=== PATIENT | female | born 1985 | race Caucasian/White ===

== ENCOUNTER 2019-08-05 05:57 | Emergency (ER) | payer MEDICAID, SELFPAY ==
[2019-08-05] MEDS ORDERED: Morphine 2 MG/ML Syringe IVPUSH ONE (06:26)
[2019-08-05] MEDS ORDERED: Sodium Chloride 0.9% 10 ML Syringe FLUSH PRN (06:32)
[2019-08-05] MEDS ORDERED: Iopamidol 755 Mg/ML 100 ML Bottle IV ONE (06:41)
[2019-08-05] MEDS ORDERED: cefTRIAXone 2 GM Vial IVPUSH ONE (08:15)
--- NOTE | 2019-08-05 08:15 | EDM.PDOC ---
ED HPI GENERAL MEDICAL PROBLEM - General Chief Complaint: General Stated Complaint: INFECTION ON STOMACH Time Seen by Provider: 08/05/19 06:00 Source of Information: Reports: Patient History Limitations: Reports: No Limitations - History of Present Illness INITIAL COMMENTS - FREE TEXT/NARRATIVE: Patient presented to the Ed because of increasing redness,pain and swelling of the left side of her abdomen. It started as a bump and now it's hard and tender. She denies having any fever or chills. - Related Data Allergies Allergy/AdvReac Type Severity Reaction Status Date / Time No Known Allergies Allergy Verified 08/05/19 07:02 Home Meds: Home Meds Cephalexin [Keflex] 500 mg PO QID #40 capsule 08/05/19 [Rx] Ibuprofen 800 mg PO TID PRN #30 tablet 08/05/19 [Rx] Past Medical History Endocrine/Metabolic History: Reports: Obesity/BMI 30+ - Past Surgical History HEENT Surgical History: Reports: Tonsillectomy Social & Family History - Tobacco Use Smoking Status *Q: Current Every Day Smoker Years of Tobacco use: 13 Packs/Tins Daily: 0.5 ED ROS GENERAL - Review of Systems Review Of Systems: See Below Constitutional: Reports: No Symptoms HEENT: Reports: No Symptoms Respiratory: Reports: No Symptoms Cardiovascular: Reports: No Symptoms Endocrine: Reports: No Symptoms GI/Abdominal: Reports: Abdominal Pain. Denies: Nausea, Vomiting : Reports: No Symptoms Musculoskeletal: Reports: No Symptoms Skin: Reports: No Symptoms Neurological: Reports: No Symptoms Psychiatric: Reports: No Symptoms ED EXAM, GENERAL - Physical Exam Exam: See Below Exam Limited By: No Limitations General Appearance: Alert, No Apparent Distress Eye Exam: Bilateral Eye: PERRL Ears: Normal External Exam, Normal Canal, Hearing Grossly Normal Nose: Normal Inspection, Normal Mucosa, No Blood Throat/Mouth: Normal Inspection, Normal Lips Head: Atraumatic, Normocephalic Neck: Normal Inspection, Supple, Non-Tender Respiratory/Chest: No Respiratory Distress, Lungs Clear, Normal Breath Sounds Cardiovascular: Normal Peripheral Pulses, Regular Rate, Rhythm, No Edema, No Murmur, No Rub GI/Abdominal: Normal Bowel Sounds, Soft, No Distention, Other (tenderness and erythema left abdominal wall) Back Exam: Normal Inspection, Full Range of Motion Extremities: Normal Inspection, Normal Range of Motion Course - Vital Signs Text/Narrative:: Labs and CT abd/pelvis was dis cussed with the patient and verbalized full understanding CT abd/pelvis-no abscess=see result Rocephin 2 gm IV x1 toradol 30 mg IV x1 Last Recorded V/S: Last Vital Signs Temp 37.5 C 08/05/19 08:40 Pulse 123 H 08/05/19 08:40 Resp 20 08/05/19 08:40 BP 139/99 H 08/05/19 08:40 Pulse Ox 99 08/05/19 08:40 - Orders/Labs/Meds Orders: Active Orders 24 hr Category Date Time Status Abdomen Pelvis w Cont [CT] Stat Exams 08/05/19 06:27 Taken Labs: Laboratory Tests 08/05/19 08/05/19 Range/Units 06:35 06:35 WBC 27.5 H (4.5-12.0) X10-3/uL RBC 4.45 (3.23-5.20) x10(6)uL Hgb 13.1 (11.5-15.5) g/dL Hct 39.4 (30.0-51.3) % MCV 88.5 (80-96) fL MCH 29.5 (27.7-33.6) pg MCHC 33.3 (32.2-35.4) g/dL RDW 13.8 (11.5-15.5) % Plt Count 322 (125-369) X10(3)uL MPV 9.3 (7.4-10.4) fL Add Manual Diff Yes Neutrophils % (Manual) 81 (46-82) % Band Neutrophils % 4 (0-6) % Lymphocytes % (Manual) 13 (13-37) % Monocytes % (Manual) 2 L (4-12) % Sodium 138 (135-145) mmol/L Potassium 4.0 (3.5-5.3) mmol/L Chloride 100 (100-110) mmol/L Carbon Dioxide 28 (21-32) mmol/L BUN 8 (7-18) mg/dL Creatinine 1.0 (0.55-1.02) mg/dL Est Cr Clr Drug Dosing TNP Estimated GFR (MDRD) > 60 (>60) BUN/Creatinine Ratio 8.0 L (9-20) Glucose 120 H (80-116) mg/dL Calcium 9.0 (8.6-10.2) mg/dL Meds: Medications Discontinued Medications Generic Name Dose Route Start Last Admin Trade Name Abimael PRN Reason Stop Dose Admin Ceftriaxone Sodium 2 gm 08/05/19 08:15 08/05/19 08:29 Rocephin IVPUSH 08/05/19 08:16 2 gm ONETIME ONE Administration Iopamidol 100 ml 08/05/19 06:41 08/05/19 07:09 [id number] (76%) IV 08/05/19 06:42 100 ml . DIRECTED ONE Administration Ketorolac Tromethamine 30 mg 08/05/19 08:17 08/05/19 08:29 Toradol IVPUSH 08/05/19 08:18 30 mg ONETIME ONE Administration Morphine Sulfate 4 mg 08/05/19 06:26 08/05/19 06:52 Morphine IVPUSH 08/05/19 06:27 4 mg ONETIME ONE Administration Sodium Chloride 10 ml 08/05/19 06:32 08/05/19 06:52 Saline Flush FLUSH 10 ml ASDIRECTED PRN Administration Keep Vein Open Departure - Departure Time of Disposition: 08:10 Disposition: Home, Self-Care 01 Condition: Good Clinical Impression: Cellulitis - Discharge Information Prescriptions: Cephalexin [Keflex] 500 mg PO QID #40 capsule Ibuprofen 800 mg PO TID PRN #30 tablet PRN Reason: Pain Instructions: Cellulitis, Adult, [id number] Referrals: Benja Damon MD [Primary Care Provider] - Forms: ED Department Discharge Additional Instructions: please read discharge instructions on cellulitis take keflex 500 mg 4 times daily for 10 days take ibuprofen 800 mg with tylenol 1000 mg every 8 hours as needed for pain follow up this Sepsis Event Note - Evaluation Sepsis Screening Result: No Definite Risk - Focused Exam Vital Signs: Vital Signs Temp Pulse Resp BP Pulse Ox 08/05/19 08:40 37.5 C 123 H 20 139/99 H 99 08/05/19 06:05 37.0 C 138 H 24 H 120/107 H 99 Date Exam was Performed: 08/05/19 Time Exam was Performed: 15:41 - My Orders Last 24 Hours: My Active Orders 08/05/19 06:27 Abdomen Pelvis w Cont [CT] Stat - Assessment/Plan Last 24 Hours: My Active Orders 08/05/19 06:27 Abdomen Pelvis w Cont [CT] Stat
[2019-08-05] MEDS ORDERED: Ketorolac 30 MG/ML SDV IVPUSH ONE (08:17)
== END 2019-08-05 08:45 | disposition home or self-care (01) ==
LOC: FB.ED 05:57
DX: L03.311 Cellulitis of abdominal wall (principal); E66.9 Obesity, unspecified; Z68.42 Body mass index [BMI] 45.0-49.9, adult; F17.210 Nicotine dependence, cigarettes, uncomplicated
CPT/HCPCS: 36415; 74177; 80048; 85025; 96374; 96375; 99284; J0696; J1885; J2270; Q9967

== ENCOUNTER 2019-08-07 15:41 | Inpatient (IN) | payer MEDICAID, OTHER ==
[2019-08-07] MEDS: Sodium Chloride 0.9% 10 ML Syringe FLUSH PRN ×2 (16:19→22:50)
[2019-08-07] MEDS ORDERED: Docusate Sodium 100 MG Cap PO PRN (16:58)
[2019-08-07] MEDS ORDERED: Ondansetron 4 MG/2 ML SDV IV PRN (16:58)
[2019-08-07] MEDS ORDERED: Ketorolac 30 MG/ML SDV IVPUSH ONE (17:09)
[2019-08-07] MEDS ORDERED: Acetaminophen 500 MG Tab PO ONE (17:10)
[2019-08-07] MEDS: Ketorolac 30 MG/ML SDV IVPUSH PRN (17:13)
[2019-08-07] MEDS: Acetaminophen 500 MG Tab PO PRN (17:13)
--- NOTE | 2019-08-07 17:33 | EDM.PDOC ---
ED HPI GENERAL MEDICAL PROBLEM - General Stated Complaint: STOMACH INFECTION Time Seen by Provider: 08/07/19 16:00 Source of Information: Reports: Patient History Limitations: Reports: No Limitations - History of Present Illness INITIAL COMMENTS - FREE TEXT/NARRATIVE: Patient presented to the ED because of worsening redness,pain,swelling on the left abdomen. She was seen in the ED 2 days ago and was given Rocephin 2 gm IV and was discharge to home with Keflex and Ibuprofen,however, she noticed the redness and swelling to be worse. there is no associated fever or chills. - Related Data Allergies Allergy/AdvReac Type Severity Reaction Status Date / Time No Known Allergies Allergy Verified 08/05/19 07:02 Home Meds: Home Meds Cephalexin [Keflex] 500 mg PO QID #40 capsule 08/05/19 [Rx] Ibuprofen 800 mg PO TID PRN #30 tablet 08/05/19 [Rx] Past Medical History Endocrine/Metabolic History: Reports: Obesity/BMI 30+ - Past Surgical History HEENT Surgical History: Reports: Tonsillectomy ED ROS GENERAL - Review of Systems Review Of Systems: See Below Constitutional: Reports: No Symptoms HEENT: Reports: No Symptoms Respiratory: Reports: No Symptoms Cardiovascular: Reports: No Symptoms Endocrine: Reports: No Symptoms GI/Abdominal: Reports: No Symptoms : Reports: No Symptoms Musculoskeletal: Reports: No Symptoms Skin: Reports: Erythema Neurological: Reports: No Symptoms Psychiatric: Reports: No Symptoms Hematologic/Lymphatic: Reports: No Symptoms ED EXAM, SKIN/RASH Exam: See Below Exam Limited By: No Limitations General Appearance: Alert, No Apparent Distress Ears: Normal External Exam, Normal Canal, Hearing Grossly Normal Nose: Normal Inspection, Normal Mucosa, No Blood Throat/Mouth: Normal Inspection, Normal Lips Head: Atraumatic, Normocephalic Neck: Normal Inspection, Supple, Non-Tender Respiratory/Chest: No Respiratory Distress, Lungs Clear, Normal Breath Sounds, No Accessory Muscle Use, Chest Non-Tender Cardiovascular: Normal Peripheral Pulses, Regular Rate, Rhythm, No Edema, No Gallop, No JVD, No Murmur, No Rub GI/Abdominal: Normal Bowel Sounds, Soft, Non-Tender, No Organomegaly, No Distention (Female) Exam: Normal External Exam, Normal Speculum Exam Back Exam: Normal Inspection, Full Range of Motion Extremities: Normal Inspection, Normal Range of Motion, No Pedal Edema, Normal Capillary Refill Skin: Warm, Dry, Erythema (LLQ) Course - Vital Signs Text/Narrative:: labs reviewed and discussed with patient and verbalized full understanding start on zosyn and vanco toradol 30 mg IV x1 tylenol 1000 mg po x1 case discussed with Dr Damon who agrreed with the above plan of care - Orders/Labs/Meds Orders: Active Orders 24 hr Category Date Time Status Patient Status [ADT] Routine ADT 08/07/19 16:58 Active Ambulate [RC] ASDIRECTED Care 08/07/19 16:58 Active Oxygen Therapy [RC] PRN Care 08/07/19 16:58 Active VTE/DVT Education [RC] Per Unit Routine Care 08/07/19 16:58 Active Vital Signs [RC] Q4H Care 08/07/19 16:58 Active Regular Diet [DIET] Diet 08/07/19 Dinner Ordered BASIC METABOLIC PANEL,BMP [CHEM] Routine Lab 08/07/19 16:58 Ordered CBC WITH AUTO DIFF [HEME] AM Lab 08/08/19 05:11 Ordered CULTURE BLOOD [BC] Urgent Lab 08/07/19 16:55 Received CULTURE BLOOD [BC] Urgent Lab 08/07/19 16:55 Received Acetaminophen [Tylenol Extra Strength] Med 08/07/19 17:03 Active 1,000 mg PO Q8H PRN Docusate Sodium [Colace] Med 08/07/19 16:58 Active 100 mg PO BID PRN Ketorolac [Toradol] Med 08/07/19 17:03 Active 30 mg IVPUSH Q8H PRN Ondansetron [Zofran] Med 08/07/19 16:58 Active 4 mg IV Q4H PRN Piperacillin/Tazobactam [Zosyn] 4.5 gm Med 08/07/19 18:00 Active Sodium Chloride 0.9% [Normal Saline] 100 ml IV Q6H Sodium Chloride 0.9% [Saline Flush] Med 08/07/19 15:44 Active 10 ml FLUSH ASDIRECTED PRN Vancomycin 1 gm Med 08/07/19 18:00 Ordered Sodium Chloride 0.9% [Normal Saline] 250 ml IV Q12H Blood Culture x2 Reflex Set [OM.PC] Urgent Oth 08/07/19 15:53 Ordered Saline Lock Insert [OM.PC] Routine Oth 08/07/19 15:44 Ordered Resuscitation Status Routine Resus Stat 08/07/19 16:58 Ordered Medication Orders Acetaminophen (Tylenol Extra Strength) 1,000 mg PO Q8H PRN PRN Reason: Pain Last Admin: 08/07/19 17:13 Dose: 1,000 mg Docusate Sodium (Colace) 100 mg PO BID PRN PRN Reason: Constipation Piperacillin Sod/Tazobactam (Sod 4.5 gm/ Sodium Chloride) 100 mls @ 200 mls/hr IV Q6H SALONI Vancomycin HCl 1 gm/ Sodium (Chloride) 250 mls @ 167 mls/hr IV Q12H SALONI Ketorolac Tromethamine (Toradol) 30 mg IVPUSH Q8H PRN PRN Reason: Pain Stop: 08/12/19 17:04 Last Admin: 08/07/19 17:13 Dose: 30 mg Ondansetron HCl (Zofran) 4 mg IV Q4H PRN PRN Reason: Nausea/Vomiting Sodium Chloride (Saline Flush) 10 ml FLUSH ASDIRECTED PRN PRN Reason: Keep Vein Open Last Admin: 08/07/19 16:19 Dose: 10 ml Labs: Laboratory Tests 08/07/19 08/07/19 08/07/19 Range/Units 16:01 16:01 16:01 WBC 17.3 H (4.5-12.0) X10-3/uL RBC 4.06 (3.23-5.20) x10(6)uL Hgb 12.2 (11.5-15.5) g/dL Hct 36.2 (30.0-51.3) % MCV 89.2 (80-96) fL MCH 30.2 (27.7-33.6) pg MCHC 33.8 (32.2-35.4) g/dL RDW 13.7 (11.5-15.5) % Plt Count 319 (125-369) X10(3)uL MPV 9.8 (7.4-10.4) fL Add Manual Diff Yes Neutrophils % (Manual) 67 (46-82) % Band Neutrophils % 5 (0-6) % Lymphocytes % (Manual) 21 (13-37) % Monocytes % (Manual) 5 (4-12) % Eosinophils % (Manual) 2 (0-5) % Sodium 142 (135-145) mmol/L Potassium 3.6 (3.5-5.3) mmol/L Chloride 104 (100-110) mmol/L Carbon Dioxide 28 (21-32) mmol/L BUN 13 (7-18) mg/dL Creatinine 0.9 (0.55-1.02) mg/dL Est Cr Clr Drug Dosing TNP Estimated GFR (MDRD) > 60 (>60) BUN/Creatinine Ratio 14.4 (9-20) Glucose 108 (80-116) mg/dL Lactic Acid 1.2 (0.4-2.0) mmol/L Calcium 9.5 (8.6-10.2) mg/dL C-Reactive Protein (0.5-0.9) mg/dL 08/07/19 Range/Units 16:01 WBC (4.5-12.0) X10-3/uL RBC (3.23-5.20) x10(6)uL Hgb (11.5-15.5) g/dL Hct (30.0-51.3) % MCV (80-96) fL MCH (27.7-33.6) pg MCHC (32.2-35.4) g/dL RDW (11.5-15.5) % Plt Count (125-369) X10(3)uL MPV (7.4-10.4) fL Add Manual Diff Neutrophils % (Manual) (46-82) % Band Neutrophils % (0-6) % Lymphocytes % (Manual) (13-37) % Monocytes % (Manual) (4-12) % Eosinophils % (Manual) (0-5) % Sodium (135-145) mmol/L Potassium (3.5-5.3) mmol/L Chloride (100-110) mmol/L Carbon Dioxide (21-32) mmol/L BUN (7-18) mg/dL Creatinine (0.55-1.02) mg/dL Est Cr Clr Drug Dosing Estimated GFR (MDRD) (>60) BUN/Creatinine Ratio (9-20) Glucose (80-116) mg/dL Lactic Acid (0.4-2.0) mmol/L Calcium (8.6-10.2) mg/dL C-Reactive Protein 9.2 H* (0.5-0.9) mg/dL Meds: Medications Generic Name Dose Route Start Last Admin Trade Name Freq PRN Reason Stop Dose Admin Acetaminophen 1,000 mg 08/07/19 17:03 08/07/19 17:13 Tylenol Extra Strength PO 1,000 mg Q8H PRN Administration Pain Docusate Sodium 100 mg 08/07/19 16:58 Colace PO BID PRN Constipation Piperacillin Sod/Tazobactam 100 mls @ 200 mls/hr 08/07/19 18:00 Sod 4.5 gm/ Sodium Chloride IV Q6H SALONI Vancomycin HCl 1 gm/ Sodium 250 mls @ 167 mls/hr 08/07/19 18:00 Chloride IV Q12H SALONI Ketorolac Tromethamine 30 mg 08/07/19 17:03 08/07/19 17:13 Toradol IVPUSH 08/12/19 17:04 30 mg Q8H PRN Administration Pain Ondansetron HCl 4 mg 08/07/19 16:58 Zofran IV Q4H PRN Nausea/Vomiting Sodium Chloride 10 ml 08/07/19 15:44 08/07/19 16:19 Saline Flush FLUSH 10 ml ASDIRECTED PRN Administration Keep Vein Open Discontinued Medications Generic Name Dose Route Start Last Admin Trade Name Freq PRN Reason Stop Dose Admin Acetaminophen 1,000 mg 08/07/19 17:10 08/07/19 17:19 Tylenol Extra Strength PO 08/07/19 17:11 Not Given ONETIME ONE Ketorolac Tromethamine 30 mg 08/07/19 17:09 08/07/19 17:18 Toradol IVPUSH 08/07/19 17:10 Not Given ONETIME ONE Departure - Departure Time of Disposition: 17:00 Disposition: Admitted As Inpatient 67 Condition: Good Clinical Impression: Cellulitis - Discharge Information - My Orders Last 24 Hours: My Active Orders 08/07/19 15:44 Sodium Chloride 0.9% [Saline Flush] 10 ml FLUSH ASDIRECTED PRN Saline Lock Insert [OM.PC] Routine 08/07/19 15:53 Blood Culture x2 Reflex Set [OM.PC] Urgent 08/07/19 16:55 CULTURE BLOOD [BC] Urgent CULTURE BLOOD [BC] Urgent 08/07/19 16:58 Patient Status [ADT] Routine Ambulate [RC] ASDIRECTED Oxygen Therapy [RC] PRN VTE/DVT Education [RC] Per Unit Routine Vital Signs [RC] Q4H BASIC METABOLIC PANEL,BMP [CHEM] Routine Docusate Sodium [Colace] 100 mg PO BID PRN Ondansetron [Zofran] 4 mg IV Q4H PRN Resuscitation Status Routine 08/07/19 17:03 Acetaminophen [Tylenol Extra Strength] 1,000 mg PO Q8H PRN Ketorolac [Toradol] 30 mg IVPUSH Q8H PRN 08/07/19 18:00 Piperacillin/Tazobactam [Zosyn] 4.5 gm Sodium Chloride 0.9% [Normal Saline] 100 ml IV Q6H Vancomycin 1 gm Sodium Chloride 0.9% [Normal Saline] 250 ml IV Q12H 08/07/19 Dinner Regular Diet [DIET] 08/08/19 05:11 CBC WITH AUTO DIFF [HEME] AM - Assessment/Plan Last 24 Hours: My Active Orders 08/07/19 15:44 Sodium Chloride 0.9% [Saline Flush] 10 ml FLUSH ASDIRECTED PRN Saline Lock Insert [OM.PC] Routine 08/07/19 15:53 Blood Culture x2 Reflex Set [OM.PC] Urgent 08/07/19 16:55 CULTURE BLOOD [BC] Urgent CULTURE BLOOD [BC] Urgent 08/07/19 16:58 Patient Status [ADT] Routine Ambulate [RC] ASDIRECTED Oxygen Therapy [RC] PRN VTE/DVT Education [RC] Per Unit Routine Vital Signs [RC] Q4H BASIC METABOLIC PANEL,BMP [CHEM] Routine Docusate Sodium [Colace] 100 mg PO BID PRN Ondansetron [Zofran] 4 mg IV Q4H PRN Resuscitation Status Routine 08/07/19 17:03 Acetaminophen [Tylenol Extra Strength] 1,000 mg PO Q8H PRN Ketorolac [Toradol] 30 mg IVPUSH Q8H PRN 08/07/19 18:00 Piperacillin/Tazobactam [Zosyn] 4.5 gm Sodium Chloride 0.9% [Normal Saline] 100 ml IV Q6H Vancomycin 1 gm Sodium Chloride 0.9% [Normal Saline] 250 ml IV Q12H 08/07/19 Dinner Regular Diet [DIET] 08/08/19 05:11 CBC WITH AUTO DIFF [HEME] AM
[2019-08-07] MEDS ORDERED: Sodium Chloride 0.9% 250 ML IV PRN (18:13)
[2019-08-07] MEDS: Piperacillin/Tazobactam 4.5 GM in Sodium Chloride 0.9% 100 ML IV SCH (18:26)
[2019-08-07] MEDS: Vancomycin/Water for INJ (PEG) 2 GM in Premix Bag 1 BAG IV SCH (20:07)
[2019-08-08] MEDS: Piperacillin/Tazobactam 4.5 GM in Sodium Chloride 0.9% 100 ML IV SCH ×5 (00:11→23:33)
[2019-08-08] MEDS: Sodium Chloride 0.9% 10 ML Syringe FLUSH PRN ×11 (00:35→23:35)
[2019-08-08] MEDS: Acetaminophen 500 MG Tab PO PRN ×2 (06:20→17:30)
[2019-08-08] MEDS: Vancomycin/Water for INJ (PEG) 2 GM in Premix Bag 1 BAG IV SCH ×2 (08:23→20:24)
[2019-08-08] MEDS ORDERED: FLU Vacc QS2019-20(6MOS+)/PF 60 MCG/0.5 ML SYRINGE IM ONE (09:00)
--- NOTE | 2019-08-08 09:24 | PCM.HP.2 ---
H&P History of Present Illness - General Date of Service: 08/08/19 Admit Problem/Dx: Admission Diagnosis/Problem Admission Diagnosis/Problem Cellulitis Source of Information: Patient History Limitations: Reports: No Limitations - History of Present Illness Initial Comments - Free Text/Narative: Valerai is a 33 yo female previously healthy,came with cellulitics of the abdominal wall.She was seen in the ED 2 days ago and was given Rocephin 2 gm IV and was discharged to home with Keflex and Ibuprofen,however, she noticed the redness and swelling to be worse over the course of the last day. However there was no associated fever or chills. She was admitted for IV Zosyn,Vanco,and this morning she endorses some improvement of the pain,and redness.It may have started from a trivial scratching on Monday. left side abd Pain Score (Numeric/FACES): 0 - Related Data Allergies/Adverse Reactions: Allergies Allergy/AdvReac Type Severity Reaction Status Date / Time No Known Allergies Allergy Verified 08/07/19 17:51 Home Medications: Home Meds Cephalexin [Keflex] 500 mg PO QID #40 capsule 08/05/19 [Rx] Ibuprofen 800 mg PO TID PRN #30 tablet 08/05/19 [Rx] Acetaminophen/Caffeine [Excedrin Tension Headache] 4 tab PO TID PRN 08/08/19 [ History] Albuterol [Proventil HFA] 2 puff IH Q4H PRN 08/08/19 [History] Menthol/Camphor [[place]] 1 applic TOP BID PRN 08/08/19 [History] Past Medical History HEENT History: Reports: Impaired Vision Respiratory History: Reports: Asthma Gastrointestinal History: Reports: G[employer] History: Reports: Other OB/BYN History: Psychiatric History: Reports: Anxiety, Depression, PTSD Endocrine/Metabolic History: Reports: Obesity/BMI 30+ Hematologic History: Reports: Anemia Dermatologic History: Reports: Cellulitis - Past Surgical History HEENT Surgical History: Reports: Tonsillectomy Social & Family History - Tobacco Use Smoking Status *Q: Current Every Day Smoker Years of Tobacco use: 15 Packs/Tins Daily: 0.5 - Caffeine Use Caffeine Use: Reports: Coffee, Energy Drinks, Soda, Tea - Recreational Drug Use Recreational Drug Use: No H&P Review of Systems - Review of Systems: Review Of Systems: Comprehensive ROS is negative, except as noted in HPI. Exam - Exam Exam: See Below - Vital Signs Vital Signs: Last Vital Signs Temp 98 F 08/08/19 00:30 Pulse 86 08/08/19 00:30 Resp 18 08/08/19 03:44 BP 116/68 08/08/19 00:30 Pulse Ox 100 08/08/19 00:30 Weight: 180.258 kg - Exam General: Alert, Oriented, 4 HEENT: PERRLA, Hearing Intact, Mucosa Moist & [place], Nares Patent, Normal Nasal Septum, Posterior Pharynx Clear, Conjunctiva Clear, EOMI, EACs Clear, TMs Clear Neck: Supple, Trachea Midline, 2 Lungs: Clear to Auscultation, Normal Respiratory Effort Cardiovascular: Regular Rate, Regular Rhythm GI/Abdominal Exam: Normal Bowel Sounds, Tender, Mass, Other (Subcutaneus redness ,firm,warm left upper quadrant) (Female) Exam: Deferred Rectal (Female) Exam: Deferred Back Exam: Normal Inspection, Full Range of Motion, NT Extremities: Normal Inspection, Normal Range of Motion, Non-Tender, No Pedal Edema, Normal Capillary Refill Skin: Warm, Dry, Intact Neurological: Cranial Nerves Intact, Reflexes Equal Bilateral Neuro Extensive - Mental Status: Alert, Oriented x3, Normal Mood/Affect, Normal Cognition Neuro Extensive - Motor, Sensory, Reflexes: CN II-XII Intact, Normal Gait, Normal Reflexes Psychiatric: Alert, Normal Affect, Normal Mood - Patient Data Lab Results Last 24 hrs: Laboratory Results - last 24 hr 08/07/19 08/07/19 08/07/19 Range/Units 16:01 16:01 16:01 WBC 17.3 H (4.5-12.0) X10-3/uL RBC 4.06 (3.23-5.20) x10(6)uL Hgb 12.2 (11.5-15.5) g/dL Hct 36.2 (30.0-51.3) % MCV 89.2 (80-96) fL MCH 30.2 (27.7-33.6) pg MCHC 33.8 (32.2-35.4) g/dL RDW 13.7 (11.5-15.5) % Plt Count 319 (125-369) X10(3)uL MPV 9.8 (7.4-10.4) fL Add Manual Diff Yes Neutrophils % (Manual) 67 (46-82) % Band Neutrophils % 5 (0-6) % Lymphocytes % (Manual) 21 (13-37) % Monocytes % (Manual) 5 (4-12) % Eosinophils % (Manual) 2 (0-5) % Sodium 142 (135-145) mmol/L Potassium 3.6 (3.5-5.3) mmol/L Chloride 104 (100-110) mmol/L Carbon Dioxide 28 (21-32) mmol/L BUN 13 (7-18) mg/dL Creatinine 0.9 (0.55-1.02) mg/dL Est Cr Clr Drug Dosing TNP Estimated GFR (MDRD) > 60 (>60) BUN/Creatinine Ratio 14.4 (9-20) Glucose 108 (80-116) mg/dL Lactic Acid 1.2 (0.4-2.0) mmol/L Calcium 9.5 (8.6-10.2) mg/dL C-Reactive Protein (0.5-0.9) mg/dL 08/07/19 08/08/19 08/08/19 Range/Units 16:01 06:20 06:20 WBC 17.6 H (4.5-12.0) X10-3/uL RBC 3.89 (3.23-5.20) x10(6)uL Hgb 11.3 L (11.5-15.5) g/dL Hct 34.6 (30.0-51.3) % MCV 88.9 (80-96) fL MCH 29.1 (27.7-33.6) pg MCHC 32.7 (32.2-35.4) g/dL RDW 13.9 (11.5-15.5) % Plt Count 318 (125-369) X10(3)uL MPV 9.8 (7.4-10.4) fL Add Manual Diff Yes Neutrophils % (Manual) 72 (46-82) % Band Neutrophils % 2 (0-6) % Lymphocytes % (Manual) 22 (13-37) % Monocytes % (Manual) 4 (4-12) % Eosinophils % (Manual) (0-5) % Sodium 141 (135-145) mmol/L Potassium 3.9 (3.5-5.3) mmol/L Chloride 104 (100-110) mmol/L Carbon Dioxide 25 (21-32) mmol/L BUN 14 (7-18) mg/dL Creatinine 0.8 (0.55-1.02) mg/dL Est Cr Clr Drug Dosing 109.17 Estimated GFR (MDRD) > 60 (>60) BUN/Creatinine Ratio 17.5 (9-20) Glucose 105 (80-116) mg/dL Lactic Acid (0.4-2.0) mmol/L Calcium 8.8 (8.6-10.2) mg/dL C-Reactive Protein 9.2 H* (0.5-0.9) mg/dL Result Diagrams: 08/08/19 06:20 08/08/19 06:20 Sepsis Event Note - Evaluation Sepsis Screening Result: No Definite Risk - Focused Exam Vital Signs: Vital Signs Temp Pulse Resp BP Pulse Ox 08/08/19 03:44 18 08/08/19 00:30 98 F 86 18 116/68 100 Date Exam was Performed: 08/08/19 Time Exam was Performed: 10:35 - Problem List (1) Cellulitis SNOMED Code(s): 551379341 ICD Code: L03.90 - CELLULITIS, UNSPECIFIED Status: Acute Current Visit: Yes Qualifiers: Site of cellulitis: unspecified site Qualified Code(s): L03.90 - Cellulitis , unspecified (2) Obesity SNOMED Code(s): 544774389, 140146423 ICD Code: E66.9 - OBESITY, UNSPECIFIED Status: Acute Current Visit: Yes Problem List Initiated/Reviewed/Updated: Yes Orders Last 24hrs: Active Orders 24 hr Category Date Time Status Patient Status [ADT] Routine ADT 08/07/19 16:58 Active Ambulate [RC] ASDIRECTED Care 08/07/19 16:58 Active Influenza Vaccine Charge [RC] .DISCHARGE Care 08/07/19 17:40 Active Oxygen Therapy [RC] PRN Care 08/07/19 16:58 Active Vital Signs [RC] 08,12,16,20,00,04 Care 08/07/19 16:58 Active Regular Diet [DIET] Diet 08/07/19 Dinner Active CULTURE BLOOD [BC] Urgent Lab 08/07/19 16:55 Received CULTURE BLOOD [BC] Urgent Lab 08/07/19 16:55 Received VANCOMYCIN TROUGH [CHEM] Routine Lab 08/09/19 07:00 Ordered Acetaminophen [Tylenol Extra Strength] Med 08/07/19 17:03 Active 1,000 mg PO Q8H PRN Docusate Sodium [Colace] Med 08/07/19 16:58 Active 100 mg PO BID PRN Ketorolac [Toradol] Med 08/07/19 17:03 Active 30 mg IVPUSH Q8H PRN Ondansetron [Zofran] Med 08/07/19 16:58 Active 4 mg IV Q4H PRN Pharmacy to Dose - Vancomycin Med 08/07/19 18:30 Pending 1 dose .XX ASDIRECTED Piperacillin/Tazobactam [Zosyn] 4.5 gm Med 08/07/19 18:00 Active Sodium Chloride 0.9% [Normal Saline] 100 ml IV Q6H Sodium Chloride 0.9% [Normal Saline] 250 ml Med 08/07/19 18:13 Active IV ASDIRECTED Sodium Chloride 0.9% [Saline Flush] Med 08/07/19 15:44 Active 10 ml FLUSH ASDIRECTED PRN Vancomycin/Water for INJ (PEG) [Vancomycin 2 GM/400 ML Med 08/07/19 20:00 Active Premix] 2 gm Premix Bag 1 bag IV Q12H Blood Culture x2 Reflex Set [OM.PC] Urgent Oth 08/07/19 15:53 Ordered Saline Lock Insert [OM.PC] Routine Oth 08/07/19 15:44 Ordered Resuscitation Status Routine Resus Stat 08/07/19 16:58 Ordered Medication Orders Acetaminophen (Tylenol Extra Strength) 1,000 mg PO Q8H PRN PRN Reason: Pain Last Admin: 08/08/19 06:20 Dose: 1,000 mg Admin: 08/07/19 17:13 Dose: 1,000 mg Docusate Sodium (Colace) 100 mg PO BID PRN PRN Reason: Constipation Piperacillin Sod/Tazobactam (Sod 4.5 gm/ Sodium Chloride) 100 mls @ 200 mls/hr IV Q6H [facility] Last Admin: 08/08/19 06:06 Dose: 200 mls/hr Admin: 08/08/19 00:11 Dose: 200 mls/hr Admin: 08/07/19 18:26 Dose: 200 mls/hr Sodium Chloride (Normal Saline) 250 mls @ 10 mls/hr IV ASDIRECTED PRN PRN Reason: FLUSH BAG Vancomycin HCl 2 gm/ Premix 400 mls @ 200 mls/hr IV Q12H [facility] Last Admin: 08/08/19 08:23 Dose: 400 mls/hr Infusion: 08/07/19 21:07 Dose: 400 mls/hr Admin: 08/07/19 20:07 Dose: 400 mls/hr Ketorolac Tromethamine (Toradol) 30 mg IVPUSH Q8H PRN PRN Reason: Pain Stop: 08/12/19 17:04 Last Admin: 08/07/19 17:13 Dose: 30 mg Ondansetron HCl (Zofran) 4 mg IV Q4H PRN PRN Reason: Nausea/Vomiting Sodium Chloride (Saline Flush) 10 ml FLUSH ASDIRECTED PRN PRN Reason: Keep Vein Open Last Admin: 08/08/19 08:28 Dose: 10 ml Admin: 08/08/19 06:12 Dose: 10 ml Admin: 08/08/19 00:35 Dose: 10 ml Admin: 08/07/19 22:50 Dose: 10 ml Admin: 08/07/19 16:19 Dose: 10 ml Vancomycin HCl (Pharmacy To Dose - Vancomycin) 1 dose .XX ASDIRECTED [facility] Assessment/Plan Comment:: Continue Zosyn/Vanco.Await blood cultures. May DC home on orals tomorrow or Monday. - Mortality Measure Prognosis:: Good
[2019-08-08] MEDS: Ketorolac 30 MG/ML SDV IVPUSH PRN ×2 (12:02→21:27)
[2019-08-09] MEDS: Piperacillin/Tazobactam 4.5 GM in Sodium Chloride 0.9% 100 ML IV SCH (05:24)
[2019-08-09] MEDS: Sodium Chloride 0.9% 10 ML Syringe FLUSH PRN (05:25)
[2019-08-09] MEDS: Acetaminophen 500 MG Tab PO PRN ×2 (07:16→15:39)
[2019-08-09] MEDS: Sulfamethoxazole/Trimethoprim 800-160 MG Tab PO SCH ×2 (10:35→21:19)
--- NOTE | 2019-08-09 11:22 | PCM.PN ---
- General Info Date of Service: 08/09/19 Admission Dx/Problem (Free Text): Patient states feeling better, redness improved but still painful at the central area of cellulitis. 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 No shortness of breath, chest pain, nausea or vomiting. Some soft stools but not diarrhea. - Patient Data Vitals - Most Recent: Last Vital Signs Temp 98.6 F 08/09/19 00:30 Pulse 82 08/09/19 00:30 Resp 18 08/09/19 04:00 BP 136/73 08/09/19 00:30 Pulse Ox 96 08/09/19 00:30 Weight - Most Recent: 397 lb 6.4 oz I&O - Last 24 Hours: Intake & Output 08/08/19 08/09/19 08/09/19 22:59 06:59 14:59 Intake Total 450 Balance 450 Lab Results Last 24 Hours: Laboratory Results - last 24 hr 08/09/19 08/09/19 08/09/19 Range/Units 06:50 06:50 06:50 WBC 13.5 H (4.5-12.0) X10-3/uL RBC 3.72 (3.23-5.20) x10(6)uL Hgb 11.0 L (11.5-15.5) g/dL Hct 33.1 (30.0-51.3) % MCV 89.2 (80-96) fL MCH 29.7 (27.7-33.6) pg MCHC 33.3 (32.2-35.4) g/dL RDW 13.7 (11.5-15.5) % Plt Count 315 (125-369) X10(3)uL MPV 9.0 (7.4-10.4) fL Add Manual Diff Yes Neutrophils % (Manual) 63 (46-82) % Band Neutrophils % 1 (0-6) % Lymphocytes % (Manual) 28 (13-37) % Monocytes % (Manual) 6 (4-12) % Eosinophils % (Manual) 2 (0-5) % Sodium 141 (135-145) mmol/L Potassium 4.1 (3.5-5.3) mmol/L Chloride 105 (100-110) mmol/L Carbon Dioxide 27 (21-32) mmol/L BUN 13 (7-18) mg/dL Creatinine 0.8 (0.55-1.02) mg/dL Est Cr Clr Drug Dosing 109.17 mL/min Estimated GFR (MDRD) > 60 (>60) BUN/Creatinine Ratio 16.3 (9-20) Glucose 103 (80-116) mg/dL Calcium 8.7 (8.6-10.2) mg/dL Vancomycin Trough 16.4 H (<0.8) ug/mL Yaniv Results Last 24 Hours: Microbiology 08/07/19 16:55 Aerobic Blood Culture - Preliminary Cord Blood NO GROWTH AFTER 1 DAY Anaerobic Blood Culture - Preliminary NO GROWTH AFTER 1 DAY 08/07/19 16:55 Aerobic Blood Culture - Preliminary Blood - Venous - Lab Draw NO GROWTH AFTER 1 DAY Anaerobic Blood Culture - Preliminary NO GROWTH AFTER 1 DAY Med Orders - Current: Current Medications Acetaminophen (Tylenol Extra Strength) 1,000 mg PO Q8H PRN PRN Reason: Pain Last Admin: 08/09/19 07:16 Dose: 1,000 mg Docusate Sodium (Colace) 100 mg PO BID PRN PRN Reason: Constipation Sodium Chloride (Normal Saline) 250 mls @ 10 mls/hr IV ASDIRECTED PRN PRN Reason: FLUSH BAG Ketorolac Tromethamine (Toradol) 30 mg IVPUSH Q8H PRN PRN Reason: Pain Stop: 08/12/19 17:04 Last Admin: 08/08/19 21:27 Dose: 30 mg Ondansetron HCl (Zofran) 4 mg IV Q4H PRN PRN Reason: Nausea/Vomiting Sodium Chloride (Saline Flush) 10 ml FLUSH ASDIRECTED PRN PRN Reason: Keep Vein Open Last Admin: 08/09/19 05:25 Dose: 10 ml Trimethoprim/Sulfamethoxazole (Septra Ds) 1 tab PO BID [facility] Last Admin: 08/09/19 10:35 Dose: 1 tab Discontinued Medications Acetaminophen (Tylenol Extra Strength) 1,000 mg PO ONETIME ONE Stop: 08/07/19 17:11 Last Admin: 08/07/19 17:19 Dose: Not Given Piperacillin Sod/Tazobactam (Sod 4.5 gm/ Sodium Chloride) 100 mls @ 200 mls/hr IV Q6H [facility] Last Admin: 08/09/19 05:24 Dose: 200 mls/hr Vancomycin HCl 2 gm/ Premix 400 mls @ 200 mls/hr IV Q12H [facility] Last Admin: 08/08/19 20:24 Dose: 400 mls/hr Vancomycin HCl (Vancomycin 1.5 Gm/300 Ml Bag) 300 mls @ 200 mls/hr IV Q12H [facility] Last Admin: 08/09/19 09:26 Dose: 200 mls/hr Influenza Virus Vaccine (Fluzone Quad Syringe) 60 mcg IM .ONCE ONE Stop: 08/08/19 09:01 Ketorolac Tromethamine (Toradol) 30 mg IVPUSH ONETIME ONE Stop: 08/07/19 17:10 Last Admin: 08/07/19 17:18 Dose: Not Given Vancomycin HCl (Pharmacy To Dose - Vancomycin) 1 dose .XX ASDIRECTED [facility] - Exam General: Alert, Oriented, Cooperative Lungs: Clear to Auscultation, Normal Respiratory Effort Cardiovascular: Regular Rate, Regular Rhythm GI/Abdominal Exam: Normal Bowel Sounds, Soft, No Distention, Tender (LUQ, erythema has improved from where skin markings, 10 cm x 5 cm area, induration/ fluctance.) Sepsis Event Note - Evaluation Sepsis Screening Result: No Definite Risk - Focused Exam Vital Signs: Vital Signs Temp Pulse Resp BP Pulse Ox 08/09/19 04:00 18 08/09/19 00:30 98.6 F 82 20 136/73 96 Date Exam was Performed: 08/09/19 Time Exam was Performed: 09:00 - Problem List & Annotations (1) Cellulitis SNOMED Code(s): 671617864 Code(s): L03.90 - CELLULITIS, UNSPECIFIED Status: Acute Current Visit: Yes Qualifiers: Site of cellulitis: trunk Site of cellulitis of trunk: abdominal wall Qualified Code(s): L03.311 - Cellulitis of abdominal wall (2) Obesity SNOMED Code(s): 955780237, 987048615 Code(s): E66.9 - OBESITY, UNSPECIFIED Status: Acute Current Visit: Yes - Problem List Review Problem List Initiated/Reviewed/Updated: Yes - My Orders Last 24 Hours: My Active Orders 08/09/19 10:00 Sulfamethoxazole/Trimethoprim [Septra DS] 1 tab PO BID 08/10/19 06:00 BASIC METABOLIC PANEL,BMP [CHEM] Routine CBC WITH AUTO DIFF [HEME] Routine CRP [C-REACTIVE PROTEIN] [CHEM] Routine - Plan Plan:: WBC down to 13.5, blood culture negative at day 1. Chemistry normal. Zosyn & Vanco day 2, vanco trough 16.4 so dose adjusted by pharmacy. Patient's IV infiltrated so will switch to Bactrim DS 1 tab bid, recheck labs tomorrow and if does well on oral would be able to go home. If she worsens then would have to restart her IV Zosyn & Vanco.
[2019-08-09] MEDS: Ketorolac 30 MG/ML SDV IM PRN (17:01)
[2019-08-10] MEDS: Acetaminophen 500 MG Tab PO PRN ×2 (00:10→10:01)
[2019-08-10] MEDS: Ketorolac 30 MG/ML SDV IM PRN (04:16)
[2019-08-10] MEDS: Sulfamethoxazole/Trimethoprim 800-160 MG Tab PO SCH (08:47)
--- NOTE | 2019-08-10 09:59 | PCM.DCSUM1 ---
Discharge Summary - Hospital Course HPI Initial Comments: Valeria is a 33 yo female previously healthy, came with cellulitics of the abdominal wall. She was seen in the ED 2 days ago and was given Rocephin 2 gm IV and was discharged to home with Keflex and Ibuprofen, however, she noticed the redness and swelling to be worse over the course of the last day. However there was no associated fever or chills. She was admitted for IV Zosyn, Vanco, and this morning she endorses some improvement of the pain,and redness. It may have started from a trivial scratching on Monday. Diagnosis: Stroke: No - Discharge Data Discharge Date: 08/10/19 Discharge Disposition: Home, Self-Care 01 Condition: Stable - Referral to Home Health Primary Care Physician: Benja Damon MD - Discharge Diagnosis/Problem(s) (1) Cellulitis SNOMED Code(s): 458310317 ICD Code: L03.90 - CELLULITIS, UNSPECIFIED Status: Acute Current Visit: Yes Qualifiers: Site of cellulitis: trunk Site of cellulitis of trunk: abdominal wall Qualified Code(s): L03.311 - Cellulitis of abdominal wall (2) Obesity SNOMED Code(s): 928964808, 887199583 ICD Code: E66.9 - OBESITY, UNSPECIFIED Status: Acute Current Visit: Yes - Patient Summary/Data Hospital Course: Patient received 2 days of IV zosyn and vancomycin, with improvement of white count. IV infiltrated and changed to Bactrim DS and has received 3 dose with slight improvement today, her CBC went up slightly but CRP is down. Blood cultures were negative. Patient would like to go home as she has no insurance. Will send her home with Bactrim DS 21 doses to complete 14 day course, will have her also take Cephalexin for double coverage since she has already at home. Pain was controlled with Toradol IV then switched to IM when IV infiltrated and Tylenol. Will go home on Ibuprofen and Tylenol. Advised to return to ER/hospital if she notices worsening of redness or increased pain, then she would have to complete IV course Vancomycin. She voiced understanding risks, benefits & alternatives of discharge. - Patient Instructions Diet: Regular Diet as Tolerated Driving: May Drive Today Showering/Bathing: May Shower Notify Provider of: Fever, Increased Pain, Swelling and Redness (Return to ER/ hospital) Other/Special Instructions: Follow up with Dr Damon in 1 week to reevaluate and if needed extend antibiotic course. - Discharge Plan *PRESCRIPTION DRUG MONITORING PROGRAM REVIEWED*: Not Applicable *COPY OF PRESCRIPTION DRUG MONITORING REPORT IN PATIENT [place]: No Prescriptions/Med Rec: Sulfamethoxazole/Trimethoprim [Septra DS] 1 tab PO BID 11 Days #21 tablet Home Medications: Home Meds Cephalexin [Keflex] 500 mg PO QID #40 capsule 08/05/19 [Rx] Ibuprofen 800 mg PO TID PRN #30 tablet 08/05/19 [Rx] Acetaminophen/Caffeine [Excedrin Tension Headache] 4 tab PO TID PRN 08/08/19 [ History] Albuterol [Proventil HFA] 2 puff IH Q4H PRN 08/08/19 [History] Menthol/Camphor [[place]] 1 applic TOP BID PRN 08/08/19 [History] Sulfamethoxazole/Trimethoprim [Septra DS] 1 tab PO BID 11 Days #21 tablet [Rx] Patient Handouts: Cellulitis, Adult, [id number] Forms: ED Department Discharge Referrals: Benja Damon MD [Primary Care Provider] - - Discharge Summary/Plan Comment DC Time >30 min.: No - General Info Date of Service: 08/10/19 Admission Dx/Problem (Free Text: Feels pain is better and that area is not as swollen and raised. Thinks the redness is about the same. No fevers or chills. Would like to go home. No nausea or vomiting. No diarrhea. - Patient Data Vitals - Most Recent: Last Vital Signs Temp 98.7 F 08/10/19 04:00 Pulse 80 08/10/19 04:00 Resp 20 08/10/19 04:00 BP 114/78 08/10/19 04:00 Pulse Ox 99 08/10/19 04:00 Weight - Most Recent: 397 lb 6.4 oz Lab Results - Last 24 hrs: Laboratory Results - last 24 hr 08/10/19 08/10/19 08/10/19 Range/Units 06:30 06:30 06:30 WBC 14.7 H (4.5-12.0) X10-3/uL RBC 3.36 (3.23-5.20) x10(6)uL Hgb 10.0 L (11.5-15.5) g/dL Hct 30.2 (30.0-51.3) % MCV 89.7 (80-96) fL MCH 29.8 (27.7-33.6) pg MCHC 33.2 (32.2-35.4) g/dL RDW 13.9 (11.5-15.5) % Plt Count 252 (125-369) X10(3)uL MPV 9.1 (7.4-10.4) fL Add Manual Diff Yes Neutrophils % (Manual) 69 (46-82) % Lymphocytes % (Manual) 24 (13-37) % Monocytes % (Manual) 6 (4-12) % Eosinophils % (Manual) 1 (0-5) % Sodium 141 (135-145) mmol/L Potassium 4.4 (3.5-5.3) mmol/L Chloride 107 (100-110) mmol/L Carbon Dioxide 25 (21-32) mmol/L BUN 15 (7-18) mg/dL Creatinine 0.7 (0.55-1.02) mg/dL Est Cr Clr Drug Dosing 124.77 mL/min Estimated GFR (MDRD) > 60 (>60) BUN/Creatinine Ratio 21.4 H (9-20) Glucose 96 (80-116) mg/dL Calcium 9.1 (8.6-10.2) mg/dL C-Reactive Protein 6.7 H* (0.5-0.9) mg/dL MARILYNN Results - Last 24 hrs: Microbiology 08/07/19 16:55 Aerobic Blood Culture - Preliminary Blood - Venous - Lab Draw NO GROWTH AFTER 2 DAYS Anaerobic Blood Culture - Preliminary NO GROWTH AFTER 2 DAYS 08/07/19 16:55 Aerobic Blood Culture - Preliminary Cord Blood NO GROWTH AFTER 2 DAYS Anaerobic Blood Culture - Preliminary NO GROWTH AFTER 2 DAYS Med Orders - Current: Current Medications Acetaminophen (Tylenol Extra Strength) 1,000 mg PO Q8H PRN PRN Reason: Pain Last Admin: 08/10/19 00:10 Dose: 1,000 mg Docusate Sodium (Colace) 100 mg PO BID PRN PRN Reason: Constipation Ketorolac Tromethamine (Toradol) 30 mg IM Q8H PRN PRN Reason: Pain Stop: 08/12/19 17:04 Last Admin: 08/10/19 04:16 Dose: 30 mg Ondansetron HCl (Zofran) 4 mg IV Q4H PRN PRN Reason: Nausea/Vomiting Trimethoprim/Sulfamethoxazole (Septra Ds) 1 tab PO BID [facility] Last Admin: 08/10/19 08:47 Dose: 1 tab Discontinued Medications Acetaminophen (Tylenol Extra Strength) 1,000 mg PO ONETIME ONE Stop: 08/07/19 17:11 Last Admin: 08/07/19 17:19 Dose: Not Given Piperacillin Sod/Tazobactam (Sod 4.5 gm/ Sodium Chloride) 100 mls @ 200 mls/hr IV Q6H [facility] Last Admin: 08/09/19 05:24 Dose: 200 mls/hr Sodium Chloride (Normal Saline) 250 mls @ 10 mls/hr IV ASDIRECTED PRN PRN Reason: FLUSH BAG Vancomycin HCl 2 gm/ Premix 400 mls @ 200 mls/hr IV Q12H [facility] Last Admin: 08/08/19 20:24 Dose: 400 mls/hr Vancomycin HCl (Vancomycin 1.5 Gm/300 Ml Bag) 300 mls @ 200 mls/hr IV Q12H [facility] Last Admin: 08/09/19 09:26 Dose: 200 mls/hr Influenza Virus Vaccine (Fluzone Quad [id number] Syringe) 60 mcg IM .ONCE ONE Stop: 08/08/19 09:01 Ketorolac Tromethamine (Toradol) 30 mg IVPUSH Q8H PRN PRN Reason: Pain Stop: 08/12/19 17:04 Last Admin: 08/08/19 21:27 Dose: 30 mg Ketorolac Tromethamine (Toradol) 30 mg IVPUSH ONETIME ONE Stop: 08/07/19 17:10 Last Admin: 08/07/19 17:18 Dose: Not Given Sodium Chloride (Saline Flush) 10 ml FLUSH ASDIRECTED PRN PRN Reason: Keep Vein Open Last Admin: 08/09/19 05:25 Dose: 10 ml Vancomycin HCl (Pharmacy To Dose - Vancomycin) 1 dose .XX ASDIRECTED [facility] - Exam General: Reports: Alert, Oriented, Cooperative, No Acute Distress Lungs: Reports: Clear to Auscultation, Normal Respiratory Effort Cardiovascular: Reports: Regular Rate, Regular Rhythm GI/Abdominal Exam: Normal Bowel Sounds, Soft, No Distention, Tender (erythema is same but swelling is not has pronounced as yesterday, soft, induration but no fluctance.)
== END 2019-08-10 11:55 | disposition home or self-care (01) | DRG 603 ==
LOC: FB.ED 15:41 → FB.MS 17:06
PROVIDERS: ADMIT Emergency Medicine; ATTEND Family Medicine
DX: L03.311 Cellulitis of abdominal wall (principal); Z68.43 Body mass index [BMI] 50.0-59.9, adult; H54.7 Unspecified visual loss; Z79.2 Long term (current) use of antibiotics; K21.9 Gastro-esophageal reflux disease without esophagitis; F17.210 Nicotine dependence, cigarettes, uncomplicated; J45.909 Unspecified asthma, uncomplicated; F41.9 Anxiety disorder, unspecified; F32.9 Major depressive disorder, single episode, unspecified; E66.9 Obesity, unspecified; Z90.89 Acquired absence of other organs; Z79.51 Long term (current) use of inhaled steroids; Z79.899 Other long term (current) drug therapy
CPT/HCPCS: 36415; 80048; 80202; 83605; 85025; 86140; 87040; 90686; 94760; 99221; 99284; 99285; A9270-GY; G0008; J1885; J2543; J3370; J7050